=== PATIENT | female | born 1960 | race Hispanic/Latino ===

== ENCOUNTER 2018-12-21 03:59 | Emergency (ER) | payer OTHER, SELFPAY ==
[2018-12-21 04:37] LABS: #Basophils 0.1 thou/uL (0.0-0.2); #Eosinphils 0.1 thou/uL (0.0-0.7); #Lymphocytes 2.2 thou/uL (1.20-3.40); #Monocytes 0.3 thou/uL (0.11-0.59); #Neutrophils 4.8 thou/uL (1.40-6.50); %Eosinophils 1.1 % (0.0-10.0); %Lymphocytes 29.6 % (21.0-51.0); %Monocytes 3.8 % (0.0-10.0); %Neutrophils 64.5 % (42.0-75.0); Hemoglobin 15.2 g/dL (12.0-16.0); Mean Corpuscular HGB CONC 33.4 g/dL (32.0-36.0); Mean Corpuscular Hemoglobin 30.4 pg (27.0-31.0); Mean Corpuscular Volume 90.9 fL (78.0-98.0); Mean Platelet Volume 7.5 fL (7.4-10.4); Platelet Count 239 thou/uL (130-400); RBC Distribution Width 12.6 % (11.5-14.5); Red Blood Cell (RBC) Count 4.99 mill/uL (4.20-5.40); White Blood Cell (WBC) Count 7.4 thou/uL (4.8-10.8)
[2018-12-21 05:00] LABS: ALT (SGPT) 33 U/L (8-55); AST (SGOT) 20 U/L (5-34); Albumin 4.1 g/dL (3.5-5.0); Alkaline Phosphatase 112 U/L (40-150); Anion Gap 15 mmol/L (10-20); BUN (Urea Nitrogen) 16 mg/dL (9.8-20.1); Bilirubin, Total 0.3 mg/dL (0.2-1.2); Calc. Creatinine Clearance 0 mL/min (70-130); Calcium 9.4 mg/dL (7.8-10.44); Carbon Dioxide 23 mmol/L (22-29); Chloride 104 mmol/L (98-107); Estimated GFR-MDRD 87; Globulin 2.9 g/dL (2.4-3.5); Glucose 265 mg/dL (70-105); Potassium 4.1 mmol/L (3.5-5.1); Sodium 138 mmol/L (136-145)
[2018-12-21] MEDS ORDERED: HYDROcodone/Acetaminophen 5/325 mg Tablet ONE (06:10)
[2018-12-21] MEDS ORDERED: Ketorolac Tromethamine 30 MG/ML VIAL ONE (07:10)
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
== END 2018-12-21 07:32 | disposition home or self-care (01) ==
LOC: ERS 03:59 → EEVIPCON 03:59 → ERS 07:32
DX: S05.11XA Contusion of eyeball and orbital tissues, right eye, initial encounter (principal); E11.9 Type 2 diabetes mellitus without complications; F32.9 Major depressive disorder, single episode, unspecified; F17.210 Nicotine dependence, cigarettes, uncomplicated; Y04.0XXA Assault by unarmed brawl or fight, initial encounter
CPT/HCPCS: 70450; 70486; 71260; 72125; 74177; 80053; 84484; 85025; 93005; 96374; J1885

== ENCOUNTER 2022-07-09 09:35 | Outpatient (CLI) | payer MEDICARE, MEDICAID | END 2022-07-09 09:36 | disposition home or self-care (01) | LOC: BICRAD 09:35 | PROVIDERS: ATTEND Family Medicine | DX: M54.2 Cervicalgia (principal) | CPT/HCPCS: 36415; 72040; 80053; 80061; 82043; 83036 ==

== ENCOUNTER 2022-07-23 09:51 | Outpatient (CLI) | payer MEDICARE, MEDICAID | END 2022-07-23 09:52 | disposition home or self-care (01) | LOC: BICCT 09:51 | PROVIDERS: ATTEND Family Medicine | DX: Z12.2 Encounter for screening for malignant neoplasm of respiratory organs (principal); F17.210 Nicotine dependence, cigarettes, uncomplicated; R91.1 Solitary pulmonary nodule | CPT/HCPCS: 71271 ==

== ENCOUNTER 2023-05-27 14:01 | Outpatient (CLI) | payer MEDICARE, MEDICAID | END 2023-05-27 14:02 | disposition home or self-care (01) | LOC: BICMAMMO 14:01 | PROVIDERS: ATTEND Family Medicine | DX: N64.4 Mastodynia (principal) | CPT/HCPCS: 76642; 77066; G0279 ==

== ENCOUNTER 2023-06-10 10:37 | Outpatient (CLI) | payer MEDICARE, MEDICAID | END 2023-06-10 10:38 | disposition home or self-care (01) | LOC: BICRAD 10:37 | PROVIDERS: ATTEND Family Medicine | DX: M54.6 Pain in thoracic spine (principal); R91.1 Solitary pulmonary nodule; M47.814 Spondylosis without myelopathy or radiculopathy, thoracic region | CPT/HCPCS: 71046; 72070 ==

== ENCOUNTER 2023-09-09 08:59 | Outpatient (CLI) | payer MEDICARE | END 2023-09-09 09:00 | disposition home or self-care (01) | LOC: BICMAMMO 08:59 | PROVIDERS: ATTEND Family Medicine | DX: Z13.820 Encounter for screening for osteoporosis (principal); M85.89 Other specified disorders of bone density and structure, multiple sites; Z78.0 Asymptomatic menopausal state; E11.42 Type 2 diabetes mellitus with diabetic polyneuropathy; R41.0 Disorientation, unspecified | CPT/HCPCS: 36415; 77080; 80053; 81001; 83036; 85025; 87086 ==

== ENCOUNTER 2023-10-07 08:34 | Outpatient (CLI) | payer MEDICARE | END 2023-10-07 08:35 | disposition home or self-care (01) | LOC: CT 08:34 | PROVIDERS: ATTEND Family Medicine | DX: R41.0 Disorientation, unspecified (principal) | CPT/HCPCS: 70470 ==

== ENCOUNTER 2025-06-08 13:52 | Outpatient (CLI) | payer MEDICARE ==
[2025-06-08] MEDS ORDERED: Iopamidol 370 76% 100 ML VIAL ONE (14:56)
== END 2025-06-08 13:53 | disposition home or self-care (01) ==
LOC: CT 13:52
PROVIDERS: ATTEND Family Medicine
DX: R14.0 Abdominal distension (gaseous) (principal); K57.30 Diverticulosis of large intestine without perforation or abscess without bleeding; K76.0 Fatty (change of) liver, not elsewhere classified; K63.89 Other specified diseases of intestine
CPT/HCPCS: 74177; Q9967

== ENCOUNTER 2025-06-28 09:02 | Outpatient (CLI) | payer MEDICARE | END 2025-06-28 09:03 | disposition home or self-care (01) | LOC: BICCT 09:02 | PROVIDERS: ATTEND Family Medicine | DX: Z12.2 Encounter for screening for malignant neoplasm of respiratory organs (principal); F17.210 Nicotine dependence, cigarettes, uncomplicated | CPT/HCPCS: 71271 ==